=== PATIENT | female | born 1965 | race Caucasian/White ===

== ENCOUNTER 2017-01-16 19:38 | Emergency (ER) | payer BC ==
[2017-01-16 20:26] LABS: Hematocrit 38.1 % (36.0-47.0); Mean Platelet Volume 8.9 fL (7.4-10.4); Red Blood Cell (RBC) Count 4.83 mill/uL (4.20-5.40); White Blood Cell (WBC) Count 8.2 thou/uL (4.8-10.8)
[2017-01-16 20:32] LABS: PTT 26.1 SEC (22.9-36.1); Prothrombin Time 13.7 SEC (12.0-14.7)
[2017-01-16 20:45] LABS: ALT (SGPT) 10 U/L (8-55); AST (SGOT) 17 U/L (5-34); Alkaline Phosphatase 156 U/L (40-150); Anion Gap 11 mmol/L (10-20); BUN (Urea Nitrogen) 11 mg/dL (9.8-20.1); Bilirubin, Total 0.3 mg/dL (0.2-1.2); Calc. Creatinine Clearance 0 mL/min (70-130); Calcium 9.1 mg/dL (7.8-10.44); Carbon Dioxide 22 mmol/L (22-29); Chloride 110 mmol/L (98-107); Estimated GFR-MDRD 68; Globulin 3.4 g/dL (2.4-3.5); Protein, Total 7.3 g/dL (6.0-8.3)
[2017-01-16 20:46] LABS: #Basophils 0.1 thou/uL (0.0-0.2); #Eosinphils 0.4 thou/uL (0.0-0.7); #Lymphocytes 3.3 thou/uL (1.20-3.40); #Monocytes 0.6 thou/uL (0.11-0.59); #Neutrophils 3.9 thou/uL (1.40-6.50); %Basophils 0.9 % (0.0-1.0); %Eosinophils 4.6 % (0.0-10.0); %Lymphocytes 40.2 % (21.0-51.0); %Monocytes 7.1 % (0.0-10.0)
[2017-01-16 20:50] LABS: Troponin I Less than 0.010 ng/mL (< 0.028)
--- NOTE | 2017-01-16 21:03 | CT ---
CT BRAIN WITHOUT CONTRAST: History: Emergency exam. Facial droop. TIA. Comparison: 12-21-13 FINDINGS: No acute territory infarct or hemorrhage. No midline shift or mass effect. Bilateral basal ganglia hy podensities are similar and may represent dilated perivascular spaces. Cerebellar tonsils terminate a t or just below the foramen magnum. IMPRESSION: No acute intracranial abnormality. POS: [facility]
[2017-01-16 23:45] LABS: Troponin I Less than 0.010 ng/mL (< 0.028)
[2017-01-17] MEDS ORDERED: Potassium Chloride 20 MEQ TAB ONE (00:14)
== END 2017-01-17 00:20 | disposition home or self-care (01) ==
LOC: ERS 19:38
DX: R20.2 Paresthesia of skin (principal); E87.6 Hypokalemia; F41.9 Anxiety disorder, unspecified; F32.9 Major depressive disorder, single episode, unspecified; Z79.899 Other long term (current) drug therapy
CPT/HCPCS: 36415; 70450; 80053; 82553; 84484; 85025; 85610; 85730; 93005

== ENCOUNTER 2017-01-18 08:10 | Outpatient (CLI) | payer BC ==
--- NOTE | 2017-01-18 10:21 | CT ---
CT TEMPORAL BONES NONCONTRAST: Date: 01/18/17 HISTORY: 51-year-old female with H90.5 asymmetrical sensorineural hearing loss. Right-sided hearing loss for 2 years, and recently left-sided hearing loss. FINDINGS: The bilateral jugular bulbs are high-riding, left greater than right. There is no dehiscence of the j ugular bulbs. 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 No other morphologic abnormality is identified involving the bilateral s emicircular canals, cochleae, vestibules, internal auditory canals, facial nerve canals, ossicles, or carotid canals. The bilateral middle ear cavities and mastoid antra are clear. The bilateral mastoid air cells are essentially completely clear. 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 Incidentally, there are dilated Virchow-Sina spaces at the inferior edges of the bilateral basal ganglia, left greater than right. IMPRESSION: 1. 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 2. Osteoarthrosis of bilateral temporomandibular joints. 3. No other abnormality of the inner ear structures. POS: [facility]
--- NOTE | 2017-01-18 10:54 | MRI ---
BRAIN AND INTERNAL AUDITORY CANAL MRI; Date: 01/18/17 HISTORY: Right ear hearing loss x2 years. Dizziness. COMPARISON: None. TECHNIQUE: Brain MRI is performed with and without intravenous Gadolinium administration. Multisequential, multi planar imaging is performed. FINDINGS: There is limited evaluation of the postcontrast images due to motion degradation. No parenchymal mass, mass effect, or midline shift. Brain volume is age-appropriate. Cortical griffith-wh ite matter differentiation is preserved. Ventricles and sulci are patent and symmetric. There are scattered white matter hyperintensities on the axial T2 and FLAIR sequence. Central arterial flow-voids are maintained. Absence restricted diffusion. Calvarium has a normal marrow signal intensity. Midline brain parenchymal structures are unremarkable . There is no pathologic enhancement of the brain parenchyma. Developmental venous anomaly in the right frontal cortex is noted. Partially empty sella is identified. There is mucosal thickening involving the right sphenoid sinus, bilateral ethmoid air cells, and righ t maxillary sinus. Adequate mastoid air cell aeration. MRI INTERNAL AUDITORY CANALS: There is symmetric signal intensity of the 7th and 8th, as well as the 5th cranial nerve complexes. N o abnormal signal intensity in either internal auditory canal or either inner ear structure. No defin ite abnormal enhancement. Limited evaluation due to motion. Visualized pituitary stalk is unremarkable and essentially midline. Bilateral Virchow-Sina spaces are noted. IMPRESSION: Unremarkable pre and postcontrast brain and internal auditory canal MRI. Evaluation of postcontrast i mages limited by motion degradation. POS: [facility]
== END 2017-01-18 08:11 | disposition home or self-care (01) ==
LOC: CT 08:10
PROVIDERS: ATTEND Otolaryngology Otology & Neurotology
DX: R42 Dizziness and giddiness (principal); H90.5 Unspecified sensorineural hearing loss; M26.69 Other specified disorders of temporomandibular joint
CPT/HCPCS: 70480; 70553

== ENCOUNTER 2018-03-19 07:01 | Day surgery (SDC) | payer BC ==
[2018-03-16 11:25] VITALS: BMI 40.7
[2018-03-19 07:45] LABS: #Eosinphils 0.4 thou/uL (0.0-0.7); #Lymphocytes 2.4 thou/uL (1.20-3.40); #Monocytes 0.6 thou/uL (0.11-0.59); #Neutrophils 3.1 thou/uL (1.40-6.50); %Basophils 0.4 % (0.0-1.0); %Eosinophils 6.7 % (0.0-10.0); %Lymphocytes 36.4 % (21.0-51.0); %Monocytes 9.4 % (0.0-10.0); %Neutrophils 47.1 % (42.0-75.0); Mean Corpuscular HGB CONC 30.4 g/dL (32.0-36.0); Mean Platelet Volume 8.5 fL (7.4-10.4); Platelet Count 255 thou/uL (130-400); RBC Distribution Width 15.4 % (11.5-14.5); Red Blood Cell (RBC) Count 4.57 mill/uL (4.20-5.40); White Blood Cell (WBC) Count 6.6 thou/uL (4.8-10.8)
[2018-03-19] MEDS ORDERED: Levofloxacin 500 mg/D5W 100 ml Premix Bag ONE (07:56)
[2018-03-19] MEDS ORDERED: Clindamycin/D5W 900 mg/50 ml Premix Bag ONE (07:56)
[2018-03-19 08:09] LABS: Anion Gap 12 mmol/L (10-20); BUN (Urea Nitrogen) 11 mg/dL (9.8-20.1); Calc. Creatinine Clearance 154 mL/min (70-130); Calcium 9.7 mg/dL (7.8-10.44); Carbon Dioxide 29 mmol/L (22-29); Chloride 102 mmol/L (98-107); Estimated GFR-MDRD 77; Glucose 95 mg/dL (70-105); Potassium 3.7 mmol/L (3.5-5.1); Sodium 139 mmol/L (136-145)
[2018-03-19] MEDS ORDERED: Sodium Chloride 0.9% 10 ML ONE (09:06)
[2018-03-19] MEDS ORDERED: Midazolam HCl 2 mg/2 ml Vial ONE (09:18)
[2018-03-19] MEDS ORDERED: Fentanyl 100 MCG/2 ML VIAL ONE ×3 (09:19→11:40)
--- NOTE | 2018-03-19 11:06 | OP ---
DATE OF PROCEDURE: 03/19/2018 PARISH NURSE: Thomas Varner PA-C. PROCEDURES PERFORMED: Decompressive L4-L5 facetectomies and foraminotomies, interbody arthrodesis, posterolateral arthrodesis, pedicle screw instrumentation, demineralized bone matrix, local morselized autograft, L4-L5. DESCRIPTION OF PROCEDURE: The patient was brought to the operating room and intubated. She was rolled in prone position on gel-filled chest rolls. An incision was made exposing L4 and L5 and the level was confirmed by x-ray. The surgery was extremely difficult given her very large body habitus, which limited the exposure as well as the x-ray. We performed facetectomies bilaterally for decompression and then debrided what was left of the intervertebral disk for the purpose of arthrodesis. An intervertebral device could not be placed given the collapse of the disk space. Pedicle screws were then placed at L4 and L5 with significant difficulty. Ultimately, screws were successfully placed and using the screws, rods were connected that were used for distraction and reduction. All nuts were finally tightened. The wound was then extensively irrigated and maximum hemostasis was secured. The combination of demineralized bone matrix and local morselized autograft was laid over the lamina on the posterolateral surface for the purpose of arthrodesis. Vancomycin powder was applied and the wound was closed in anatomic layers. Job ID: [id number]
[2018-03-19] MEDS ORDERED: Ketorolac Tromethamine 30 MG/ML VIAL ONE (13:37)
[2018-03-19] MEDS ORDERED: Lidocaine 1% PF 5 ML VIAL ONE (13:37)
[2018-03-19] MEDS ORDERED: Ondansetron PF 4 MG/2 ML Vial ONE (13:37)
[2018-03-19] MEDS ORDERED: Dexamethasone 20 MG/5 ML VIAL ONE (13:37)
[2018-03-19] MEDS ORDERED: PHENYLEPHRINE-NS 100 MCG/ML 10 ML SYRINGE ONE (13:37)
[2018-03-19] MEDS ORDERED: PROPOFOL 200 MG/20 ML VIAL ONE (13:37)
[2018-03-19] MEDS ORDERED: Glycopyrrolate 0.2 MG/ML 5 ML SYRINGE ONE (13:37)
[2018-03-19] MEDS ORDERED: Rocuronium Bromide 10 MG/ML (10ML VIAL) ONE (13:37)
--- NOTE | 2018-03-19 20:18 | EKG ---
Test Reason : PREOP Blood Pressure : / mmHG Vent. Rate : 070 BPM Atrial Rate : 070 BPM P-R Int : 154 ms QRS Dur : 092 ms QT Int : 400 ms P-R-T Axes : 052 027 010 degrees QTc Int : 432 ms Normal sinus rhythm Nonspecific ST and T wave abnormality Abnormal ECG When compared with ECG of 16-JAN-2017 23:07, No significant change was found Confirmed by BAN HOUSTON, . SFortunato ([id number]) on 03/19/2018 8:18:41 PM Referred By: JERICHO Confirmed By:DR. Nahun CEVALLOS MD
== END 2018-03-19 13:27 | disposition home or self-care (01) ==
LOC: SDC 07:01
PROVIDERS: ATTEND Neurological Surgery
PROC: 0SG00AJ Fusion of Lumbar Vertebral Joint with Interbody Fusion Device, Posterior Approach, Anterior Column, Open Approach (ICD-10-PCS; principal; 2018-03-19)
DX: M43.16 Spondylolisthesis, lumbar region (principal); F41.9 Anxiety disorder, unspecified; F32.9 Major depressive disorder, single episode, unspecified; Z88.0 Allergy status to penicillin; Z79.1 Long term (current) use of non-steroidal anti-inflammatories (NSAID); Z79.899 Other long term (current) drug therapy
CPT/HCPCS: 36415; 76000; 80048; 85025; 93005; 93010; C1713; C1768; J0131; J1100; J1885; J1956; J2001; J2250; J2405; J2704; J3010; J3370; J3490

== ENCOUNTER 2018-04-04 15:27 | Outpatient (CLI) | payer BC ==
--- NOTE | 2018-04-04 16:05 | RAD ---
LUMBAR SPINE TWO VIEWS: HISTORY: Followup exam. Status post back surgery. COMPARISON: None. FINDINGS: Five lumbar type vertebral bodies. Bilateral transpedicular screws at L4 and L5. No evidence of per ihardware lucency. There is 11 mm of anterolisthesis of L4 upon L5. Mild rightward curvature of the lumbar spine in the AP projection. IMPRESSION: Lumbar fusion at L4-L5. POS: [facility]
== END 2018-04-04 15:28 | disposition home or self-care (01) ==
LOC: TBSIIMAG 15:27
PROVIDERS: ATTEND Neurological Surgery
DX: M54.5 Low back pain (principal); Z98.1 Arthrodesis status
CPT/HCPCS: 72100

== ENCOUNTER 2018-05-23 15:50 | Outpatient (CLI) | payer BC ==
--- NOTE | 2018-05-23 16:09 | RAD ---
F2 views lumbar spine. HISTORY: Lumbar spondylosis. AP and lateral views lumbar spine obtained. Comparison made to previous exam from 04/04/2018. The patient has a transitional lumbosacral vertebra which will be considered to be the S1 vertebral b sofia. L5-S1 posterior surgical hardware is in place. There continues to be anterolisthesis of L5 on S1. The degree of anterolisthesis appears to have increased now measuring approximately 14 mm. Previous exam from 04/04/2018 suggested approximately 11 mm of anterolisthesis. IMPRESSION: Increasing anterolisthesis of L5 on S1.
== END 2018-05-23 15:51 | disposition home or self-care (01) ==
LOC: TBSIIMAG 15:50
PROVIDERS: ATTEND Neurological Surgery
DX: M43.16 Spondylolisthesis, lumbar region (principal); M43.17 Spondylolisthesis, lumbosacral region
CPT/HCPCS: 72100

== ENCOUNTER 2018-10-08 11:23 | Emergency (ER) | payer BC ==
--- NOTE | 2018-10-08 12:09 | RAD ---
RADIOGRAPH CHEST 1 VIEW: DATE: 10/08/2018 HISTORY: 53-year-old female with chest pain FINDINGS: There are no airspace densities, pulmonary edema, pneumothorax, or cardiomegaly. The lateral costophr enic angles are sharp. IMPRESSION: No acute cardiopulmonary findings.
[2018-10-08 12:11] LABS: #Eosinphils 0.4 thou/uL (0.0-0.7); #Lymphocytes 2.1 thou/uL (1.20-3.40); #Monocytes 0.6 thou/uL (0.11-0.59); #Neutrophils 3.5 thou/uL (1.40-6.50); %Basophils 0.5 % (0.0-1.0); %Eosinophils 5.8 % (0.0-10.0); %Monocytes 8.5 % (0.0-10.0); %Neutrophils 53.3 % (42.0-75.0); Hemoglobin 11.7 g/dL (12.0-16.0); Mean Corpuscular HGB CONC 32.3 g/dL (32.0-36.0); Mean Corpuscular Hemoglobin 24.9 pg (27.0-31.0); Mean Corpuscular Volume 77.1 fL (78.0-98.0); Mean Platelet Volume 9.2 fL (7.4-10.4); Platelet Count 249 thou/uL (130-400); RBC Distribution Width 16.2 % (11.5-14.5); Red Blood Cell (RBC) Count 4.69 mill/uL (4.20-5.40); White Blood Cell (WBC) Count 6.5 thou/uL (4.8-10.8)
[2018-10-08 12:27] LABS: ALT (SGPT) 24 U/L (8-55); AST (SGOT) 34 U/L (5-34); Albumin 4.4 g/dL (3.5-5.0); Alkaline Phosphatase 160 U/L (40-150); Anion Gap 14 mmol/L (10-20); BUN (Urea Nitrogen) 10 mg/dL (9.8-20.1); Bilirubin, Total 0.4 mg/dL (0.2-1.2); CK (CPK) 200 U/L (29-168); Calc. Creatinine Clearance 0 mL/min (70-130); Calcium 9.9 mg/dL (7.8-10.44); Carbon Dioxide 29 mmol/L (22-29); Chloride 97 mmol/L (98-107); Estimated GFR-MDRD 76; Globulin 3.2 g/dL (2.4-3.5); Glucose 85 mg/dL (70-105); Potassium 3.7 mmol/L (3.5-5.1); Protein, Total 7.6 g/dL (6.0-8.3); Sodium 136 mmol/L (136-145)
[2018-10-08] MEDS ORDERED: Aspirin Chewable 81 MG TAB ONE (13:33)
== END 2018-10-08 14:40 | disposition home or self-care (01) ==
LOC: ERS 11:23
DX: R07.89 Other chest pain (principal); M54.12 Radiculopathy, cervical region; I10 Essential (primary) hypertension; F41.9 Anxiety disorder, unspecified; F32.9 Major depressive disorder, single episode, unspecified; Z79.899 Other long term (current) drug therapy
CPT/HCPCS: 36415; 71045; 80053; 82550; 84484; 85025; 93005

== ENCOUNTER 2019-06-29 00:50 | Observation (INO) | payer BC, OTHER ==
[2019-06-29] MEDS ORDERED: Acetaminophen 500 MG TAB ONE (01:13)
[2019-06-29 01:46] LABS: #Eosinphils 0.2 thou/uL (0.0-0.7); #Lymphocytes 1.4 thou/uL (1.20-3.40); #Monocytes 1.1 thou/uL (0.11-0.59); #Neutrophils 11.8 thou/uL (1.40-6.50); %Basophils 0.2 % (0.0-1.0); %Eosinophils 1.1 % (0.0-10.0); %Lymphocytes 9.4 % (21.0-51.0); %Monocytes 7.4 % (0.0-10.0); Hemoglobin 12.8 g/dL (12.0-16.0); Mean Corpuscular HGB CONC 31.4 g/dL (32.0-36.0); Mean Corpuscular Hemoglobin 27.6 pg (27.0-31.0); Mean Platelet Volume 9.3 fL (7.4-10.4); Platelet Count 209 thou/uL (130-400); RBC Distribution Width 13.9 % (11.5-14.5); Red Blood Cell (RBC) Count 4.65 mill/uL (4.20-5.40); White Blood Cell (WBC) Count 14.4 thou/uL (4.8-10.8)
[2019-06-29 01:51] LABS: Bacteria/HPF 1+ HPF (None Seen); Bilirubin Negative (Negative); Blood, Urine Negative (Negative); Clarity Clear (Clear); Glucose, Urine (Dipstick) Normal (Negative); Leukocyte 25 Leu/uL (Negative); Nitrite 1+ (Negative); Protein, Urine (Dipstick) Negative (Neg-Trace); RBC/HPF 0-3 HPF (0-3); Squamous Epithelial 0-3 HPF (0-3); Urobilinogen Normal mg/dL (Less than 2)
[2019-06-29 02:07] LABS: ALT (SGPT) 28 U/L (8-55); AST (SGOT) 47 U/L (5-34); Albumin 4.4 g/dL (3.5-5.0); Alkaline Phosphatase 182 U/L (40-110); Anion Gap 15 mmol/L (10-20); BUN (Urea Nitrogen) 19 mg/dL (9.8-20.1); Bilirubin, Total 0.4 mg/dL (0.2-1.2); Calc. Creatinine Clearance 0 mL/min (70-130); Calcium 9.6 mg/dL (7.8-10.44); Carbon Dioxide 23 mmol/L (22-29); Chloride 104 mmol/L (98-107); Estimated GFR-MDRD 62; Globulin 3.6 g/dL (2.4-3.5); Glucose 110 mg/dL (70-105); Potassium 3.7 mmol/L (3.5-5.1); Sodium 138 mmol/L (136-145)
[2019-06-29 02:27] LABS: CKMB 0.7 ng/mL (0-6.6)
[2019-06-29] MEDS ORDERED: Acetaminophen 325 MG TAB PO PRN ×2 (03:00→05:26)
[2019-06-29] MEDS ORDERED: Levofloxacin 500 mg/D5W 100 ml Premix Bag ONE (03:44)
[2019-06-29 05:12] LABS: Troponin I 0.013 ng/mL (< 0.028)
[2019-06-29] MEDS ORDERED: Acetaminophen 650 MG Suppository PR PRN (05:26)
[2019-06-29] MEDS ORDERED: Sodium Chloride 0.9% 1,000 ML IV SCH (05:30)
--- NOTE | 2019-06-29 05:34 | PDOC.HHP ---
Hospitalist HPI - History of Present Illness cough fever History of Present Illness: Case of an 54y/o female with pmhx of htn, depression and meniere's disease who comes to hospital due to cough and fever. patient refers she was on her usual state of health until yesterday when she started to have some cough. symptoms progress and her cough got worse which is dry non productive, and patient started today with general malaise chills and fever for which she came to hospital for evaluation. at the ed patient was found with possible uti with leukocytosis and a mild troponin elevation of 0.04 for which hospitalist was consulted for further management and evaluation. Hospitalist ROS - Review of Systems All other systems reviewed; all pertinent +/- noted in HPI/Subj Hospitalist History - Past Medical History Cardiac: reports: HTN - Past Surgical History Past Surgical History: reports: Cholecystectomy, Tubal Ligation Other Surgical History: gastrix sleeve - Family History Family History: reports: hyperlipidemia, hypertension - Social History Smoking Status: Former smoker Alcohol: reports: None Drugs: reports: none Living Situation: With Family Activity level: independent ambulation - Exam General Appearance: awake alert Eye: PERRL, anicteric sclera ENT: normocephalic atraumatic, no oropharyngeal lesions, moist mucosa Neck: supple, symmetric, no JVD, no thyromegaly Heart: RRR, no murmur, no gallops, no rubs Respiratory: CTAB, no wheezes, no rales, no ronchi Gastrointestinal: soft, non-tender, non-distended, normal bowel sounds Extremities: no cyanosis, no clubbing, no edema Skin: normal turgor, no lesions, no rashes Neurological: cranial nerve grossly intact, normal sensation to touch, no weakness Musculoskeletal: normal tone, normal strength, no muscle wasting Psychiatric: normal affect, normal behavior, A&O x 3 Hospitalist Results - Labs Result Diagrams: 06/29/19 01:30 06/29/19 01:30 Lab results: WBC 14.4 thou/uL (4.8-10.8) H 06/29/19 01:30 Hgb 12.8 g/dL (12.0-16.0) 06/29/19 01:30 Hct 40.9 % (36.0-47.0) 06/29/19 01:30 MCV 88.0 fL (78.0-98.0) 06/29/19 01:30 Plt Count 209 thou/uL (130-400) 06/29/19 01:30 Neutrophils % 82.0 % (42.0-75.0) H 06/29/19 01:30 Sodium 138 mmol/L (136-145) 06/29/19 01:30 Potassium 3.7 mmol/L (3.5-5.1) 06/29/19 01:30 Chloride 104 mmol/L (98-107) 06/29/19 01:30 Carbon Dioxide 23 mmol/L (22-29) 06/29/19 01:30 BUN 19 mg/dL (9.8-20.1) 06/29/19 01:30 Creatinine 0.93 mg/dL (0.6-1.1) 06/29/19 01:30 Glucose 110 mg/dL (70-105) H 06/29/19 01:30 Calcium 9.6 mg/dL (7.8-10.44) 06/29/19 01:30 Total Bilirubin 0.4 mg/dL (0.2-1.2) 06/29/19 01:30 AST 47 U/L (5-34) H 06/29/19 01:30 ALT 28 U/L (8-55) 06/29/19 01:30 Alkaline Phosphatase 182 U/L (40-110) H 06/29/19 01:30 CK-MB (CK-2) 0.7 ng/mL (0-6.6) 06/29/19 01:30 Troponin I 0.013 ng/mL (< 0.028) 06/29/19 04:36 B-Natriuretic Peptide 11.8 pg/mL (0-100) 06/29/19 01:30 Serum Total Protein 8.0 g/dL (6.0-8.3) 06/29/19 01:30 Albumin 4.4 g/dL (3.5-5.0) 06/29/19 01:30 Urine Ketones Negative mg/dL (Negative) 06/29/19 01:00 Urine Blood Negative (Negative) 06/29/19 01:00 Urine Nitrite 1+ (Negative) A 06/29/19 01:00 Ur Leukocyte Esterase 25 Andriy/uL (Negative) 06/29/19 01:00 Urine RBC 0-3 HPF (0-3) 06/29/19 01:00 Urine WBC 4-6 HPF (0-3) A 06/29/19 01:00 Ur Squamous Epith Cells 0-3 HPF (0-3) 06/29/19 01:00 Urine Bacteria 1+ HPF (None Seen) A 06/29/19 01:00 Hospitalist H&P A/P - Problem (1) Troponin level elevated Code(s): R79.89 - OTHER SPECIFIED ABNORMAL FINDINGS OF BLOOD CHEMISTRY Status : Acute (2) COVID-19 ruled out Code(s): Z03.818 - ENCNTR FOR OBS FOR SUSP EXPSR TO OT BIOLG AGENTS RULED OUT Status: Acute (3) UTI (urinary tract infection) Status: Acute (4) Hypertension Code(s): I10 - ESSENTIAL (PRIMARY) HYPERTENSION Status: Acute (5) Meniere disease Code(s): H81.09 - MENIERE'S DISEASE, UNSPECIFIED EAR Status: Acute - Plan Plan: troponin elevation - pt with mild troponin elevation at 0.[address] changes, no chest pain sob palpitation or diaphoresis, might me secondary to infection, will run serial troponins to evaluated trend, consult cardiology if necessary covid r/o - patient complaining of cough fever and general malaise, swab taken at the ed, isolation protocols were started. will start pt prophylactically on rocephin and azithromycin utu - patient with u/a consistent with possible uti, pt also complain of dysuria , should b covered with rocephin , f/u urine cultures
[2019-06-29] MEDS ORDERED: cefTRIAXone\\ROCEPHIN 1 GM in Sodium Chloride 0.9% 100 ML IVPB SCH (06:00)
[2019-06-29] MEDS ORDERED: Azithromycin 500 MG in Sodium Chloride 0.9% 250 ML 250 ML IVPB SCH (06:00)
[2019-06-29] MEDS ORDERED: Aspirin 325 MG TAB ONE (06:54)
[2019-06-29 07:31] VITALS: BMI 42.4
--- NOTE | 2019-06-29 07:45 | RAD ---
Exam: Chest one view HISTORY:Dry cough x24 hours. Fever. Comparison: 10/08/2018 FINDINGS: Cardiac silhouette: Normal Aorta: Unremarkable Pulmonary vessels: Normal Costophrenic angles: Clear LUNGS: No masses or consolidation. Pneumothorax: None Osseous abnormalities: None IMPRESSION: No acute cardiopulmonary process.
[2019-06-29] MEDS ORDERED: Enoxaparin Sodium 40 MG/0.4 ML SYRINGE SC SCH (09:00)
[2019-06-29 09:33] LABS: Troponin I 0.017 ng/mL (< 0.028)
--- NOTE | 2019-06-29 12:59 | PDOC.HOSPP ---
- Subjective Encounter Date: 06/29/19 Encounter Time: 12:57 Subjective: Ms. Villanueva was seen today in follow-up of cough and fever. She says she feels better today, just sleepy. She says she was up most of the night last night, and believes this is the reason. She is taking Gabapentin and requip, but says she has been on these medications for " a long time " without any recent changes in the doses. - Objective Vital Signs & Weight: Vital Signs (12 hours) Temp Pulse Resp BP BP Pulse Ox 06/29/19 11:30 98.0 F 62 22 H 117/58 L 94 L 06/29/19 07:27 98.0 F 76 20 112/58 L 94 L Weight Weight 270 lb 11.2 oz Result Diagrams: 06/29/19 01:30 06/29/19 01:30 Hospitalist ROS - Medication Medications: Active Medications Generic Name Dose Route Start Last Admin Trade Name Freq PRN Reason Stop Dose Admin Enoxaparin Sodium 40 mg 06/29/19 09:00 06/29/19 12:09 Lovenox SC Not Given 0900 MARY - Exam Eye: PERRL, anicteric sclera Heart: RRR, no murmur, no gallops, no rubs, normal peripheral pulses Respiratory: CTAB, no wheezes, no rales, no ronchi, normal chest expansion, no tachypnea Gastrointestinal: soft, non-tender, non-distended, normal bowel sounds, no palpable masses Extremities: no cyanosis, no edema Hosp A/P (1) UTI (urinary tract infection) Status: Acute (2) Hypertension Code(s): I10 - ESSENTIAL (PRIMARY) HYPERTENSION Status: Chronic (3) Toxic metabolic encephalopathy Code(s): G92 - TOXIC ENCEPHALOPATHY Status: Acute (4) Meniere disease Code(s): H81.09 - MENIERE'S DISEASE, UNSPECIFIED EAR Status: Chronic - Plan * Bronchitis- will change to oral Azithromycin ( symptoms are very mild ) * Toxic metabolic encephalopathy- I suspect this is due to medications. This is improving, and she is now alert and oriented to person place and time, as well as situation. * Chronic pain- controlled * HTN- blood pressure is controlled * I suspect she could go home on oral antibiotics soon, pending the COVID results if she continues to be alert and oriented
[2019-06-29 16:41] VITALS: BP 116/60; TEMP 98.1
[2019-06-29 17:11] LABS: SARS-CoV-2 MS2 Positive; SARS-CoV-2 N Gene Negative; SARS-CoV-2 S Gene Negative; SARS-CoV-2 orf1ab Negative
--- NOTE | 2019-06-29 21:42 | DIS ---
DATE OF ADMISSION: 06/29/2019 DATE OF DISCHARGE: 06/29/2019 DISCHARGE DISPOSITION: Home. DISCHARGE DIAGNOSES: 1. Urinary tract infection. 2. Somnolence. 3. Meniere's disease. 4. Hypertension. 5. Hyperlipidemia. DISCHARGE MEDICATIONS: Include Bactrim DS one tablet p.o. twice a day for 3 days. She is to continue her other home medications including Maxzide 37.5/25 one tablet daily, Zanaflex 4 mg q.6 as needed, Requip 1 mg at bedtime, Zofran 4 mg q.8 as needed, Antivert 12.5 mg as needed, gabapentin 1200 mg twice a day, Flonase nasal spray in each naris daily, Flexeril 10 mg p.o. t.i.d., citalopram 20 mg daily, albuterol inhaler 2 puffs q.6 as needed, and Celebrex 200 mg daily. CODE STATUS: Full code. ALLERGIES: TO PENICILLIN. HOSPITAL COURSE: Ms. Villanueva is a pleasant 54-year-old female, who was admitted to the hospital after having concerns for COVID infection. She says she was having cough and fever and her wanted her to have it checked out. She is also complaining of some malaise and chills. She came to the ER and was found to have some leukocytosis and for this reason, there was some concern. A COVID screen was done and she was placed in observation. Later on that afternoon, the COVID screen came back negative and the patient actually returned back to her baseline. She was extremely drowsy initially, but she says that she believes this is because she has been extremely tired and had not been able to sleep in the last day or two. She denies any symptoms of sleep apnea and says she has been on a stable dose of gabapentin as well as Requip with no changes in the dosages. Therefore, since her COVID screen was negative and she was afebrile, she will be discharged home and we will send her home on Bactrim for the urinary tract infection. She has been instructed to follow up with her primary care physician in about 2 weeks. Job ID: [id number]
[2019-06-30] MEDS ORDERED: Azithromycin 250 MG TAB PO SCH (09:00)
--- NOTE | 2019-07-06 14:44 | EKG ---
Test Reason : Blood Pressure : / mmHG Vent. Rate : 087 BPM Atrial Rate : 087 BPM P-R Int : 144 ms QRS Dur : 082 ms QT Int : 344 ms P-R-T Axes : 041 018 -55 degrees QTc Int : 413 ms Normal sinus rhythm Nonspecific T wave abnormality Abnormal ECG Confirmed by JAIRO SCHULTZ M.D. ([id number]), international editorial producer ROSI VINCENT ([id number]) on 07/06/2019 2:44:03 PM Referred By: Confirmed By:JAIRO SCHULTZ M.D.
== END 2019-06-29 20:06 | disposition home or self-care (01) ==
LOC: ERS 00:50 → 2SW 03:50
PROVIDERS: ADMIT Internal Medicine; ATTEND Internal Medicine
DX: R05 Cough (principal); R50.9 Fever, unspecified; N39.0 Urinary tract infection, site not specified; H81.09 Meniere's disease, unspecified ear; I10 Essential (primary) hypertension; E78.5 Hyperlipidemia, unspecified; R40.0 Somnolence; Z79.899 Other long term (current) drug therapy; Z87.891 Personal history of nicotine dependence; Z88.0 Allergy status to penicillin; Z20.828 Contact with and (suspected) exposure to other viral communicable diseases
CPT/HCPCS: 36415; 71045; 80053; 81003; 81015; 82553; 83880; 84145; 84484; 85025; 87040; 87635; 93005; 96365; 96366; G0378; J0696; J1956; J3490; U0003

== ENCOUNTER 2021-08-27 09:40 | Outpatient (CLI) | payer BC | END 2021-08-27 09:41 | disposition home or self-care (01) | LOC: TBSIIMAG 09:40 | PROVIDERS: ATTEND Physician Assistant | DX: M51.36 Other intervertebral disc degeneration, lumbar region (principal); M43.16 Spondylolisthesis, lumbar region; Z98.1 Arthrodesis status | CPT/HCPCS: 72100 ==

== ENCOUNTER 2024-12-17 23:26 | Inpatient (IN) | payer BC ==
[2024-12-18] MEDS ORDERED: HYDROcodone/Acetaminophen 7.5/325 mg Tablet ONE (00:05)
[2024-12-18] MEDS ORDERED: Ondansetron PF 4 MG/2 ML Vial ONE ×2 (01:47→11:56)
[2024-12-18] MEDS ORDERED: hydrALAZINE 20 MG/ML VIAL SLOW IVP PRN (01:56)
[2024-12-18] MEDS ORDERED: Acetaminophen 325 MG TAB PO PRN (01:56)
[2024-12-18] MEDS ORDERED: Glucagon 1 MG/ML KIT IM PRN (01:56)
[2024-12-18] MEDS ORDERED: Dextrose 50% Abboject 50 ML SYRINGE SLOW IVP PRN (01:56)
[2024-12-18 02:49] VITALS: BMI 31.5
[2024-12-18 05:23] LABS: #Basophils 0.06 10x3/uL (0.0-0.2); #Eosinophils 0.42 10x3/uL (0.0-0.7); #Monocytes 0.66 10x3/uL (0.11-0.59); #Neutrophils 4.06 10x3/uL (1.40-6.50); %Basophils 0.8 % (0.0-1.0); %Eosinophils 5.8 % (0.0-10.0); %Lymphocytes 27.7 % (21.0-51.0); %Monocytes 9.1 % (0.0-10.0); %Neutrophils 56.2 % (42.0-75.0); Hematocrit 38.9 % (36.0-47.0); Hemoglobin 12.5 g/dL (12.0-16.0); Mean Corpuscular Hemoglobin 28.0 pg (27.0-31.0); Mean Corpuscular Volume 87.0 fL (78.0-98.0); Platelet Count 199 10x3/uL (130-400); Red Blood Cell (RBC) Count 4.47 mill/uL (4.20-5.40); White Blood Cell (WBC) Count 7.23 10x3/uL (4.8-10.8)
[2024-12-18 05:44] LABS: Anion Gap 12 mmol/L (10-20); BUN (Urea Nitrogen) 15 mg/dL (9.8-20.1); Calc. Creatinine Clearance 125 mL/min (70-130); Calcium 9.4 mg/dL (7.8-10.44); Carbon Dioxide 25 mmol/L (23-31); Chloride 106 mmol/L (98-107); Glucose 89 mg/dL (80-115); Potassium 2.2 mmol/L (3.5-5.1); Sodium 141 mmol/L (136-145)
[2024-12-18] MEDS ORDERED: Electrolyte Replacement Protocol 1 EACH FS SCH (06:15)
[2024-12-18] MEDS: Magnesium 2 GM/50 ML(in water) 2 GM in Premix 1 BAG IVPB PRN (06:25)
[2024-12-18] MEDS ORDERED: PHOS-NAK 1 PKT PACK PO PRN (06:30)
[2024-12-18 06:36] LABS: Magnesium 2.2 mg/dL (1.6-2.6)
[2024-12-18] MEDS: Potassium Chloride 20 MEQ in Premix 1 BAG IVPB PRN (06:40)
[2024-12-18] MEDS ORDERED: Clindamycin/D5W 900 MG in Premix 1 BAG IVPB SCH (08:00)
[2024-12-18] MEDS: Senokot S 8.6-50 MG TAB PO SCH (11:03)
[2024-12-18] MEDS ORDERED: Rocuronium Bromide 10 MG/ML (10ML VIAL) ONE (11:54)
[2024-12-18] MEDS ORDERED: Lidocaine 1% PF 5 ML VIAL ONE (11:54)
[2024-12-18 12:40] LABS: Anion Gap 11 mmol/L (10-20); BUN (Urea Nitrogen) 13 mg/dL (9.8-20.1); Calc. Creatinine Clearance 123 mL/min (70-130); Calcium 9.2 mg/dL (7.8-10.44); Carbon Dioxide 24 mmol/L (23-31); Chloride 108 mmol/L (98-107); Glucose 84 mg/dL (80-115); Potassium 2.7 mmol/L (3.5-5.1); Sodium 140 mmol/L (136-145)
[2024-12-18] MEDS ORDERED: Famotidine/PF 20 mg/2ml Vial ONE (12:52)
[2024-12-18] MEDS: Potassium Chloride 20 MEQ in Premix 1 BAG IVPB SCH (14:32)
[2024-12-18] MEDS: Methocarbamol 500 MG TAB PO PRN (17:58)
[2024-12-18] MEDS: Enoxaparin 40 MG (0.4 mL) SYRINGE SC SCH (21:09)
[2024-12-18] MEDS: Pantoprazole 40 MG DR.TAB PO SCH (23:19)
[2024-12-19 05:41] LABS: #Basophils 0.06 10x3/uL (0.0-0.2); #Eosinophils 0.53 10x3/uL (0.0-0.7); #Monocytes 0.65 10x3/uL (0.11-0.59); #Neutrophils 3.76 10x3/uL (1.40-6.50); %Basophils 0.8 % (0.0-1.0); %Eosinophils 7.5 % (0.0-10.0); %Lymphocytes 29.4 % (21.0-51.0); %Monocytes 9.1 % (0.0-10.0); %Neutrophils 52.9 % (42.0-75.0); Hematocrit 40.8 % (36.0-47.0); Hemoglobin 13.1 g/dL (12.0-16.0); Mean Corpuscular Hemoglobin 28.1 pg (27.0-31.0); Mean Corpuscular Volume 87.6 fL (78.0-98.0); Platelet Count 211 10x3/uL (130-400); Red Blood Cell (RBC) Count 4.66 mill/uL (4.20-5.40); White Blood Cell (WBC) Count 7.11 10x3/uL (4.8-10.8)
[2024-12-19 05:56] LABS: Anion Gap 13 mmol/L (10-20); BUN (Urea Nitrogen) 13 mg/dL (9.8-20.1); Calc. Creatinine Clearance 131 mL/min (70-130); Calcium 9.0 mg/dL (7.8-10.44); Carbon Dioxide 20 mmol/L (23-31); Chloride 109 mmol/L (98-107); Glucose 88 mg/dL (80-115); Magnesium 2.0 mg/dL (1.6-2.6); Potassium 3.4 mmol/L (3.5-5.1); Sodium 139 mmol/L (136-145)
[2024-12-19] MEDS ORDERED: Clindamycin/D5W 900 MG in Premix 1 BAG IVPB SCH (08:00)
[2024-12-19] MEDS ORDERED: Ondansetron PF 4 MG/2 ML Vial ONE (08:52)
[2024-12-19] MEDS ORDERED: fentaNYL PF 100 MCG/2 ML SYRINGE ONE (08:53)
[2024-12-19] MEDS ORDERED: PROPOFOL 200 MG/20 ML VIAL ONE (09:26)
[2024-12-19] MEDS ORDERED: PHENYLEPHRINE-NS 100 MCG/ML 10 ML SYRINGE ONE (09:26)
[2024-12-19] MEDS: Ketorolac Tromethamine 30 MG (1 mL) VIAL IVP PRN (14:46)
[2024-12-19] MEDS: Clindamycin/D5W 900 MG in Premix 1 BAG IVPB SCH (18:23)
[2024-12-20 05:35] LABS: #Basophils 0.03 10x3/uL (0.0-0.2); #Eosinophils 0.14 10x3/uL (0.0-0.7); #Monocytes 0.75 10x3/uL (0.11-0.59); #Neutrophils 3.66 10x3/uL (1.40-6.50); %Basophils 0.5 % (0.0-1.0); %Eosinophils 2.1 % (0.0-10.0); %Lymphocytes 30.3 % (21.0-51.0); %Monocytes 11.4 % (0.0-10.0); %Neutrophils 55.5 % (42.0-75.0); Hematocrit 30.5 % (36.0-47.0); Hemoglobin 9.7 g/dL (12.0-16.0); Mean Corpuscular Hemoglobin 28.1 pg (27.0-31.0); Mean Corpuscular Volume 88.4 fL (78.0-98.0); Platelet Count 198 10x3/uL (130-400); Red Blood Cell (RBC) Count 3.45 mill/uL (4.20-5.40); White Blood Cell (WBC) Count 6.59 10x3/uL (4.8-10.8)
[2024-12-20 05:37] LABS: Anion Gap 11 mmol/L (10-20); BUN (Urea Nitrogen) 18 mg/dL (9.8-20.1); Calc. Creatinine Clearance 136 mL/min (70-130); Calcium 8.7 mg/dL (7.8-10.44); Carbon Dioxide 25 mmol/L (23-31); Chloride 106 mmol/L (98-107); Glucose 101 mg/dL (80-115); Magnesium 1.9 mg/dL (1.6-2.6); Potassium 3.6 mmol/L (3.5-5.1); Sodium 138 mmol/L (136-145)
[2024-12-20] MEDS: HYDROcodone/Acetaminophen 5/325 mg Tablet PO PRN ×2 (07:18→18:46)
[2024-12-20] MEDS: Enoxaparin 40 MG (0.4 mL) SYRINGE SC SCH (08:58)
[2024-12-21 05:26] LABS: #Basophils 0.04 10x3/uL (0.0-0.2); #Eosinophils 0.19 10x3/uL (0.0-0.7); #Monocytes 0.47 10x3/uL (0.11-0.59); #Neutrophils 2.71 10x3/uL (1.40-6.50); %Basophils 0.8 % (0.0-1.0); %Eosinophils 3.7 % (0.0-10.0); %Lymphocytes 33.9 % (21.0-51.0); %Monocytes 9.1 % (0.0-10.0); %Neutrophils 52.1 % (42.0-75.0); Hematocrit 23.9 % (36.0-47.0); Hemoglobin 7.6 g/dL (12.0-16.0); Mean Corpuscular Hemoglobin 27.7 pg (27.0-31.0); Mean Corpuscular Volume 87.2 fL (78.0-98.0); Platelet Count 175 10x3/uL (130-400); Red Blood Cell (RBC) Count 2.74 mill/uL (4.20-5.40); White Blood Cell (WBC) Count 5.19 10x3/uL (4.8-10.8)
[2024-12-21 05:41] LABS: Anion Gap 10 mmol/L (10-20); BUN (Urea Nitrogen) 16 mg/dL (9.8-20.1); Calc. Creatinine Clearance 143 mL/min (70-130); Calcium 8.4 mg/dL (7.8-10.44); Carbon Dioxide 25 mmol/L (23-31); Chloride 110 mmol/L (98-107); Glucose 93 mg/dL (80-115); Potassium 3.3 mmol/L (3.5-5.1); Sodium 142 mmol/L (136-145)
[2024-12-21] MEDS: Gabapentin 400 MG CAP PO SCH (09:29)
[2024-12-21 12:29] LABS: Hematocrit 25.5 % (36.0-47.0); Hemoglobin 7.9 g/dL (12.0-16.0); Mean Corpuscular Hemoglobin 27.9 pg (27.0-31.0); Mean Corpuscular Volume 90.1 fL (78.0-98.0); Platelet Count 193 10x3/uL (130-400); Red Blood Cell (RBC) Count 2.83 mill/uL (4.20-5.40); White Blood Cell (WBC) Count 5.50 10x3/uL (4.8-10.8)
[2024-12-21] MEDS: Methocarbamol 500 MG TAB PO PRN (21:57)
[2024-12-21] MEDS: Pantoprazole 40 MG DR.TAB PO SCH (21:58)
[2024-12-21] MEDS: Melatonin 3 MG TAB PO SCH (21:59)
[2024-12-21] MEDS: BuPROPion XL 150 MG ER.TAB PO SCH (22:12)
[2024-12-22 05:36] LABS: #Basophils Less than 0.03 10x3/uL (0.0-0.2); #Eosinophils 0.29 10x3/uL (0.0-0.7); #Monocytes 0.40 10x3/uL (0.11-0.59); #Neutrophils 2.10 10x3/uL (1.40-6.50); %Basophils 0.4 % (0.0-1.0); %Eosinophils 6.3 % (0.0-10.0); %Lymphocytes 38.7 % (21.0-51.0); %Monocytes 8.7 % (0.0-10.0); %Neutrophils 45.7 % (42.0-75.0); Hematocrit 21.6 % (36.0-47.0); Hemoglobin 6.9 g/dL (12.0-16.0); Mean Corpuscular Hemoglobin 28.4 pg (27.0-31.0); Mean Corpuscular Volume 88.9 fL (78.0-98.0); Platelet Count 181 10x3/uL (130-400); Red Blood Cell (RBC) Count 2.43 mill/uL (4.20-5.40); White Blood Cell (WBC) Count 4.60 10x3/uL (4.8-10.8)
[2024-12-22 06:00] LABS: Anion Gap 11 mmol/L (10-20); BUN (Urea Nitrogen) 12 mg/dL (9.8-20.1); Calc. Creatinine Clearance 157 mL/min (70-130); Calcium 8.4 mg/dL (7.8-10.44); Carbon Dioxide 23 mmol/L (23-31); Chloride 110 mmol/L (98-107); Glucose 91 mg/dL (80-115); Potassium 3.0 mmol/L (3.5-5.1); Sodium 141 mmol/L (136-145)
[2024-12-22] MEDS: Pantoprazole 40 MG DR.TAB PO SCH (09:32)
[2024-12-22] MEDS: Melatonin 3 MG TAB PO SCH (20:02)
[2024-12-23 05:18] LABS: #Basophils 0.03 10x3/uL (0.0-0.2); #Eosinophils 0.27 10x3/uL (0.0-0.7); #Monocytes 0.49 10x3/uL (0.11-0.59); #Neutrophils 2.26 10x3/uL (1.40-6.50); %Basophils 0.6 % (0.0-1.0); %Eosinophils 5.6 % (0.0-10.0); %Lymphocytes 35.8 % (21.0-51.0); %Monocytes 10.3 % (0.0-10.0); %Neutrophils 47.3 % (42.0-75.0); Hematocrit 27.5 % (36.0-47.0); Hemoglobin 8.6 g/dL (12.0-16.0); Mean Corpuscular Hemoglobin 28.2 pg (27.0-31.0); Mean Corpuscular Volume 90.2 fL (78.0-98.0); Platelet Count 215 10x3/uL (130-400); Red Blood Cell (RBC) Count 3.05 mill/uL (4.20-5.40); White Blood Cell (WBC) Count 4.78 10x3/uL (4.8-10.8)
[2024-12-23 05:33] LABS: Anion Gap 10 mmol/L (10-20); BUN (Urea Nitrogen) 14 mg/dL (9.8-20.1); Calc. Creatinine Clearance 146 mL/min (70-130); Calcium 8.8 mg/dL (7.8-10.44); Carbon Dioxide 24 mmol/L (23-31); Chloride 110 mmol/L (98-107); Glucose 85 mg/dL (80-115); Potassium 3.7 mmol/L (3.5-5.1); Sodium 140 mmol/L (136-145)
[2024-12-23 16:33] VITALS: BP 116/80; TEMP 97.6
[2024-12-23] MEDS ORDERED: AcetaZOLAMIDE ER 500 MG CAP PO SCH (21:00)
[2024-12-24] MEDS ORDERED: Non-Formulary Item 1 EACH (Celecoxib [Celecoxib] 200 MG Capsule) PO SCH (09:00)
[2024-12-24] MEDS ORDERED: Non-Formulary Item 1 EACH (Triamterene/Hydrochlorothiazid [Triamterene-Hctz 37.5-25 Mg Cp PO SCH (09:00)
[2024-12-24] MEDS ORDERED: Triamterene/Hydrochlorothiazide 37.5 mg/25 mg Tablet PO SCH (09:00)
== END 2024-12-23 17:30 | DRG 482 ==
LOC: ERS 23:26 → SURG B 12-18 02:06
PROVIDERS: ADMIT Surgery; ATTEND Surgery
PROC: 3E03329 Introduction of Other Anti-infective into Peripheral Vein, Percutaneous Approach (ICD-10-PCS; 2024-12-18)
PROC: 0QH604Z Insertion of Internal Fixation Device into Right Upper Femur, Open Approach (ICD-10-PCS; principal; 2024-12-19)
PROC: 30233L1 Transfusion of Nonautologous Fresh Plasma into Peripheral Vein, Percutaneous Approach (ICD-10-PCS; 2024-12-22)
DX: S72.141A Displaced intertrochanteric fracture of right femur, initial encounter for closed fracture (principal); W19.XXXA Unspecified fall, initial encounter; Z79.899 Other long term (current) drug therapy; Z88.0 Allergy status to penicillin; I10 Essential (primary) hypertension; Z98.890 Other specified postprocedural states; G25.81 Restless legs syndrome; M19.90 Unspecified osteoarthritis, unspecified site; F41.9 Anxiety disorder, unspecified; F32.A Depression, unspecified; D64.89 Other specified anemias
CPT/HCPCS: 36415; 36430; 72170; 72192; 80048; 83735; 85025; 86850; 86900; 86901; 96374; 96375; C1713; G0283-GO; G0390; J1100; J1308; J1650; J1885; J2250; J2270; J2405; J2704; J3010; J3475; J3480; J3490; J7120; P9016; P9059